=== PATIENT | male | born 1935 | race American Indian/Alaskan Native ===

== ENCOUNTER 2017-05-30 10:25 | Inpatient (IN) | payer MEDICARE, BC ==
[2017-05-30] MEDS ORDERED: Sodium Chloride 0.9% 500 ML IV ONE ×2 (11:16→11:33)
--- NOTE | 2017-05-30 11:18 | C.PDOC ---
History Of Present Illness 81 yr old M BIBA for AMS, pt woke up his grand daughter and was asking strange questions and has slurred speech, ALS noted hypoglycemia 44, treated on the field, re-checked 290. Pt denies chest pain, any weakness, numbness, sob, n/v/d , speaks in full sentences. Time Seen by Provider: 05/30/17 11:01 Chief Complaint (Nursing): Altered Mental Status History Per: Patient, EMS, Family History/Exam Limitations: None Onset/Duration Of Symptoms: Mins, Sudden Onset Onset Of Symptoms: <3 Hours Current Symptoms Are (Timing): Gone Usual Baseline: Alert Oriented Past Medical History Reviewed: Historical Data, Nursing Documentation, Vital Signs Vital Signs: Last Vital Signs Temp 97.8 F 05/30/17 16:19 Pulse 80 05/30/17 16:19 Resp 20 05/30/17 16:19 BP 157/67 H 05/30/17 16:19 Pulse Ox 99 05/30/17 18:14 - Medical History PMH: HTN, Hypercholesterolemia Family History: States: No Known Family Hx - Social History Hx Alcohol Use: No Hx Substance Use: No - Immunization History Hx Tetanus Toxoid Vaccination: No Hx Influenza Vaccination: No Hx Pneumococcal Vaccination: No Review Of Systems Except As Marked, All Systems Reviewed And Found Negative. Constitutional: Negative for: Fever, Chills Eyes: Negative for: Pain ENT: Negative for: Ear Pain Cardiovascular: Negative for: Chest Pain Respiratory: Negative for: Cough Gastrointestinal: Negative for: Nausea, Vomiting, Abdominal Pain Genitourinary: Negative for: Dysuria Musculoskeletal: Negative for: Neck Pain Neurological: Positive for: Change in Speech, Altered Mental Status. Negative for: Weakness, Numbness Physical Exam - Physical Exam Appears: Non-toxic Skin: Normal Color, Warm Head: Atraumatic, Normacephalic Eye(s): bilateral: Normal Inspection Ear(s): Bilateral: Normal Nose: Normal Oral Mucosa: Moist Tongue: Normal Appearing Gingiva: Normal Appearing Throat: Normal Neck: Normal, Normal ROM Chest: Symmetrical Cardiovascular: Rhythm Regular Respiratory: Normal Breath Sounds Gastrointestinal/Abdominal: Normal Exam Back: Normal Inspection Extremity: Normal ROM Neurological/Psych: Oriented x3, Normal Speech, Normal Motor, Normal Sensation ED Course And Treatment - Laboratory Results Result Diagrams: 05/30/17 11:28 05/30/17 11:28 Lab Interpretation: Abnormal (anemia) ECG: Interpreted By Me ECG Rhythm: Sinus Rhythm ECG Interpretation: Abnormal Interpretation Of ECG: sinus rhythm with 1st degree AV block O2 Sat by Pulse Oximetry: 99 Pulse Ox Interpretation: Normal - Radiology CXR: Viewed By Me, Read By Radiologist CXR Interpretation: Yes: Infiltrates - CT Scan/US head CT Other Rad Studies (CT/US): Read By Radiologist, Radiology Report Reviewed CT/US Interpretation: No acute changes, pls see full report - Physician Consult Information Physician Contacted: Mary Le (accepted the pt) Disposition Counseled Patient/Family Regarding: Studies Performed, Diagnosis, Need For Followup - Disposition Disposition: HOSPITALIZED Disposition Time: 13:00 Condition: STABLE - Clinical Impression Clinical Impression: Altered mental state, Pneumonia, Hypoglycemia, Heart block AV first degree Decision To Admit - Pt Status Changed To: Hospital Disposition Of: Inpatient - Admit Certification Admit to Inpatient:: After my assessment, the patient will require hospitalization for at least two midnights. This is because of the severity of symptoms shown, intensity of services needed, and/or the medical risk in this patient being treated as an outpatient. - InPatient: Physician Admission Certification:: AMS, pneumonia, hypoglycemia, 1st degree AV block - . Bed Request Type: Telemetry Admitting Physician: Mary Le Patient Diagnosis: Altered mental state, Pneumonia, Hypoglycemia, Heart block AV first degree
[2017-05-30 11:32] LABS: BASO % 0.3 % (0.0-2.0); EOS % 0.4 % (0.0-4.0); HEMATOCRIT 31.7 % (35.0-51.0); LYMPH # 0.7 K/uL (1.0-4.3); LYMPH % 9.6 % (20.0-40.0); MEAN CELL VOLUME 93.3 fL (80.0-94.0); MEAN CORPUSCULAR HEMOGLOBIN 30.9 pg (27.0-31.0); MEAN CORPUSCULAR HGB CONC 33.1 g/dL (33.0-37.0); MONO # 0.8 K/uL (0.0-0.8); MONO % 11.1 % (0.0-10.0); PLATELET COUNT 202 K/uL (130-400); RED CELL DISTRIBUTION WIDTH 14.5 % (11.5-14.5); WHITE BLOOD COUNT 7.3 K/uL (4.8-10.8)
[2017-05-30 11:37] LABS: URINE BILIRUBIN NEGATIVE (NEGATIVE); URINE COLOR Colorless (YELLOW); URINE GLUCOSE (UA) 2+ mg/dL (Normal); URINE KETONE NEGATIVE (NEGATIVE); URINE LEUKOCYTE ESTERASE NEG Leu/uL (Negative); URINE PROTEIN NEGATIVE (NEGATIVE); URINE UROBILINOGEN NORMAL mg/dL (0.2-1.0); WBC URINE 1 /hpf (0-5)
[2017-05-30 11:38] LABS: URINE BLOOD NEGATIVE (NEGATIVE)
[2017-05-30 11:44] LABS: ALKALINE PHOSPHATASE 54 U/L (38-126); ALT/SGPT 32 U/L (21-72); AST/SGOT 25 U/L (17-59); BILIRUBIN,TOTAL 0.5 mg/dL (0.2-1.3); CARBON DIOXIDE 25 mmol/L (22-30); CHLORIDE 108 mmol/L (98-107); GFR AFRICAN-AMERICAN > 60; GLUCOSE,RANDOM 114 mg/dL (75-110); POTASSIUM 4.2 mmol/L (3.6-5.2); SODIUM 139 mmol/L (132-148); TOTAL PROTEIN 6.2 g/dL (6.3-8.3)
[2017-05-30 11:46] LABS: ALB/GLOB RATIO 1.3 (1.0-2.1); BLOOD UREA NITROGEN 11 mg/dL (9-20)
--- NOTE | 2017-05-30 11:57 | RAD ---
Chest x-ray single frontal view History: Altered mental status. Comparison: None available. Findings: Mild to moderate venous congestion. Superimposed patchy increased consolidative changes seen within the right mid to lower lung zone. Pleural thickening and/or small pleural effusion at the right lung base. Status post median sternotomy. Mild linear atelectasis in the right midlung. Biapical pleural thickening. Tortuous ectatic aorta. Mild cardiomegaly. Degenerative changes in the spine and shoulders. Impression: Mild to moderate venous congestion. Superimposed patchy increased consolidative changes seen within the right mid to lower lung zone. Pleural thickening and/or small pleural effusion at the right lung base. Mild linear atelectasis in the right midlung.
--- NOTE | 2017-05-30 12:13 | CT ---
PROCEDURE: CT HEAD WITHOUT CONTRAST. HISTORY: AMS COMPARISON: None available. TECHNIQUE: Axial computed tomography images were obtained through the head/brain without intravenous contrast. Radiation dose: Total exam DLP = 900.00 mGy-cm. This CT exam was performed using one or more of the following dose reduction techniques: Automated exposure control, adjustment of the mA and/or kV according to patient size, and/or use of iterative reconstruction technique. FINDINGS: HEMORRHAGE: No intracranial hemorrhage. BRAIN: Diffuse expansion of the ventriculosulcal and cisternal spaces is appreciated with white matter lucency compatible with diffuse cerebral atrophy and chronic microangiopathy. Bilateral basal ganglia chronic lacunes or infarcts are identified. VENTRICLES: Unremarkable. No hydrocephalus. CALVARIUM: Unremarkable. PARANASAL SINUSES: Total ethmoid sinusitis changes are incidentally noted. MASTOID AIR CELLS: Unremarkable as visualized. No inflammatory changes. OTHER FINDINGS: None. IMPRESSION: Age related neuro degenerative changes are identified without acute intracranial findings as discussed above. Follow up CT or MRI are available if clinically warranted.
[2017-05-30 12:23] LABS: NEUTROPHIL 82 % (50-75); TOTAL CELLS COUNTED 100
[2017-05-30] MEDS ORDERED: Azithromycin 500mg/250ML NS 500 MG/250 ML BAG IV STA (13:00)
--- NOTE | 2017-05-30 19:55 | CP.PCM.CON ---
History of Present Illness - History of Present Illness History of Present Illness: INFECTIOUS DISEASE CONSULT DICTATED ; DICTATION NO: [id number] Past Patient History - Past Medical History & Family History Past Medical History?: Yes - Past Social History Smoking Status: Never Smoked - CARDIAC Hx Hypercholesterolemia: Yes Hx Hypertension: Yes - PULMONARY Hx Respiratory Disorders: No - NEUROLOGICAL Hx Neurological Disorder: No - HEENT Hx HEENT Problems: No - RENAL Hx Chronic Kidney Disease: No - ENDOCRINE/METABOLIC Hx Endocrine Disorders: Yes Hx Diabetes Mellitus Type 2: Yes - HEMATOLOGICAL/ONCOLOGICAL Hx Blood Disorders: No - MUSCULOSKELETAL/RHEUMATOLOGICAL Hx Musculoskeletal Disorders: No Hx Falls: No - GASTROINTESTINAL Hx Gastrointestinal Disorders: No - GENITOURINARY/GYNECOLOGICAL Hx Genitourinary Disorders: No - PSYCHIATRIC Hx Substance Use: No - SURGICAL HISTORY Hx Surgeries: Yes Hx Angioplasty: Yes Hx Cardiac Catheterization: Yes - ANESTHESIA Hx Anesthesia: Yes Hx Anesthesia Reactions: No Hx Malignant Hyperthermia: No Has any member of the family had a problem w/ anesthesia?: No Meds Allergies/Adverse Reactions: Allergies Allergy/AdvReac Type Severity Reaction Status Date / Time No Known Allergies Allergy Verified 05/30/17 10:52 - Medications Medications: Current Medications Albuterol/Ipratropium (Duoneb 3 Mg/0.5 Mg (3 Ml) Ud) 3 ml INH RQ6 [facility] Amlodipine Besylate (Norvasc) 5 mg PO DAILY [facility] Aspirin (Aspirin Chewable) 81 mg PO DAILY [facility] Last Admin: 05/30/17 18:57 Dose: 81 mg Azithromycin 500 mg/ Sodium (Chloride) 250 mls @ 250 mls/hr IVPB Q24H [facility] Ceftriaxone Sodium 1 gm/ (Dextrose) 100 mls @ 100 mls/hr IVPB Q24H [facility] Losartan Potassium (Cozaar) 25 mg PO DAILY [facility] Magnesium Oxide (Mag-Ox) 400 mg PO BID [facility] Metoprolol Tartrate (Lopressor) 25 mg PO BID [facility] Last Admin: 05/30/17 18:58 Dose: 25 mg Ondansetron HCl (Zofran Inj) 4 mg IVP Q6 PRN PRN Reason: Nausea/Vomiting Last Admin: 05/30/17 16:31 Dose: 4 mg Pantoprazole Sodium (Protonix Ec Tab) 40 mg PO DAILY [facility] Sennosides (Senokot Tab) 8.6 mg PO DAILY [facility] Spironolactone (Aldactone) 25 mg PO DAILY [facility] Results - Vital Signs Recent Vital Signs: Last Vital Signs Temp 97.8 F 05/30/17 16:19 Pulse 80 05/30/17 16:19 Resp 20 05/30/17 16:19 BP 154/67 H 05/30/17 18:58 Pulse Ox 99 05/30/17 18:22 - Labs Result Diagrams: 05/30/17 11:28 05/30/17 11:28 Labs: Laboratory Results - last 24 hr 05/30/17 05/30/17 05/30/17 11:28 11:28 11:28 WBC 7.3 RBC 3.39 L Hgb 10.5 L Hct 31.7 L MCV 93.3 MCH 30.9 MCHC 33.1 RDW 14.5 Plt Count 202 MPV 8.0 Neut % (Auto) 78.6 H Lymph % (Auto) 9.6 L [place] % (Auto) 11.1 H Eos % (Auto) 0.4 Baso % (Auto) 0.3 Neut # 5.7 Lymph # 0.7 L [place] # 0.8 Eos # 0.0 Baso # 0.0 Neutrophils % (Manual) 82 H Lymphocytes % (Manual) 14 L Monocytes % (Manual) 4 Platelet Estimate Normal RBC Morphology Normal Sodium 139 Potassium 4.2 Chloride 108 H Carbon Dioxide 25 Anion Gap 10 BUN 11 Creatinine 1.1 Est GFR ( Amer) > 60 Est GFR (Non-Af Amer) > 60 POC Glucose (mg/dL) Random Glucose 114 H Calcium 8.0 L Total Bilirubin 0.5 AST 25 ALT 32 Alkaline Phosphatase 54 Troponin I < 0.0120 NT-Pro-B Natriuret Pep 444 Total Protein 6.2 L Albumin 3.5 Globulin 2.7 Albumin/Globulin Ratio 1.3 Lipase 122 Urine Color Colorless Urine Clarity Clear Urine pH 7.0 Ur Specific [place] 1.003 Urine Protein Negative Urine Glucose (UA) 2+ H Urine Ketones Negative Urine Blood Negative Urine Nitrate Negative Urine Bilirubin Negative Urine Urobilinogen Normal Ur Leukocyte Esterase Neg Urine WBC (Auto) 1 Ur Squamous Epith Cells < 1 Urine Opiates Screen Urine Methadone Screen Ur Barbiturates Screen Ur Phencyclidine Scrn Ur Amphetamines Screen U Benzodiazepines Scrn U Oth Cocaine Metabols U Cannabinoids Screen 05/30/17 05/30/17 05/30/17 11:28 16:51 16:53 WBC RBC Hgb Hct MCV MCH MCHC RDW Plt Count MPV Neut % (Auto) Lymph % (Auto) [place] % (Auto) Eos % (Auto) Baso % (Auto) Neut # Lymph # [place] # Eos # Baso # Neutrophils % (Manual) Lymphocytes % (Manual) Monocytes % (Manual) Platelet Estimate RBC Morphology Sodium Potassium Chloride Carbon Dioxide Anion Gap BUN Creatinine Est GFR ( Amer) Est GFR (Non-Af Amer) POC Glucose (mg/dL) 31 L* 32 L* Random Glucose Calcium Total Bilirubin AST ALT Alkaline Phosphatase Troponin I NT-Pro-B Natriuret Pep Total Protein Albumin Globulin Albumin/Globulin Ratio Lipase Urine Color Urine Clarity Urine pH Ur Specific [place] Urine Protein Urine Glucose (UA) Urine Ketones Urine Blood Urine Nitrate Urine Bilirubin Urine Urobilinogen Ur Leukocyte Esterase Urine WBC (Auto) Ur Squamous Epith Cells Urine Opiates Screen Negative Urine Methadone Screen Negative Ur Barbiturates Screen Negative Ur Phencyclidine Scrn Negative Ur Amphetamines Screen Negative U Benzodiazepines Scrn Negative U Oth Cocaine Metabols Negative U Cannabinoids Screen Negative 05/30/17 05/30/17 05/30/17 17:20 18:27 18:29 WBC RBC Hgb Hct MCV MCH MCHC RDW Plt Count MPV Neut % (Auto) Lymph % (Auto) [place] % (Auto) Eos % (Auto) Baso % (Auto) Neut # Lymph # [place] # Eos # Baso # Neutrophils % (Manual) Lymphocytes % (Manual) Monocytes % (Manual) Platelet Estimate RBC Morphology Sodium Potassium Chloride Carbon Dioxide Anion Gap BUN Creatinine Est GFR ( Amer) Est GFR (Non-Af Amer) POC Glucose (mg/dL) 67 47 L 75 Random Glucose Calcium Total Bilirubin AST ALT Alkaline Phosphatase Troponin I NT-Pro-B Natriuret Pep Total Protein Albumin Globulin Albumin/Globulin Ratio Lipase Urine Color Urine Clarity Urine pH Ur Specific [place] Urine Protein Urine Glucose (UA) Urine Ketones Urine Blood Urine Nitrate Urine Bilirubin Urine Urobilinogen Ur Leukocyte Esterase Urine WBC (Auto) Ur Squamous Epith Cells Urine Opiates Screen Urine Methadone Screen Ur Barbiturates Screen Ur Phencyclidine Scrn Ur Amphetamines Screen U Benzodiazepines Scrn U Oth Cocaine Metabols U Cannabinoids Screen
[2017-05-30] MEDS: Albuterol-Ipratrop 3 mg / 0.5 (3 ml) UD INH SCH (20:01)
[2017-05-30] MEDS: Dextrose 5%/0.9% NS 1,000 ML IV SCH (20:40)
[2017-05-30] MEDS: cefTRIAXone IV 1 gm in Dextros 50 ML IVPB SCH (20:46)
[2017-05-30] MEDS ORDERED: Dextrose 50% SYRINGE Inj (50 ml) ONE (21:34)
--- NOTE | 2017-05-30 21:44 | CON ---
DATE: 05/30/2017 INFECTIOUS DISEASE CONSULTATION REQUESTED BY: Dr. Le. DICTATION DONE BY: Lesvia Hull MD. REASON FOR CONSULTATION: Altered mental status, pneumonia, hypoglycemia. HISTORY OF PRESENT ILLNESS: The patient, 81-year-old male, with history of hypertension, hypercholesterolemia, who was admitted by the emergency room because of altered mental status and slurred speech. As reported by his granddaughter, the patient was asking strange questions and had a slurred speech. The patient was found to be hypoglycemic by the ALS with a blood sugar of 44 and treated on the field and recheck was 290 as reported. Presently, the patient is awake and responsive. Complains of a dry cough with scanty expectoration, but denies any shortness of breath, chest pains. The patient also denies any weakness, numbness or headaches. Denies any nausea, vomiting or diarrhea. The patient is speaking in full sentences and remembers his medications also. Chest x-ray on admission was remarkable for consolidative changes in the right middle lobe and right lower lobe zones. 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 Infectious Disease consultation requested by Dr. Le for pneumonia and altered mental status. PAST MEDICAL HISTORY: As above, history of hypertension, history of hypercholesterolemia, history of diabetes mellitus. The patient states he is on metformin and glipizide at home. FAMILY HISTORY: Noncontributory. SOCIAL HISTORY: Denies alcohol use or any substance abuse. Denies smoking at present. IMMUNIZATION: The patient is not up to date with his immunization with influenza vaccination or pneumococcal vaccination. Denies any tetanus vaccination recently, but he is unsure. REVIEW OF SYSTEMS: As above. GENERAL: Presently, the patient is awake and responsive. Denies any fever or chills. ENT: Denies any ear pain. Eyes: No pain or conjunctivitis. CARDIOVASCULAR: Denies any chest pain, shortness of breath. RESPIRATORY: Complains of some cough, but denies any expectorant. GI: Denies nausea, vomiting or diarrhea or abdominal pain. : Unremarkable. No dysuria. No hematuria. MUSCULOSKELETAL: Denies any pains or aches or myalgias or arthralgias. JIVE DEVELOPER: Initial change of speech, but presently talking in full sentences. PHYSICAL EXAMINATION: GENERAL: The patient is an 81-year-old well-built, well-nourished male. 5 feet 5 inches. 165 pounds. VITAL SIGNS: Temperature 97.8, blood pressure 157/67, respirations 20, pulse of 80, pulse ox is 99% on room air. HEENT: Pupils equal, reactive to light and accommodation. Extraocular movements full. Fundus negative. Sclerae nonicteric. Conjunctivae normal. JVP not elevated. NECK: Appears to be supple. LUNGS: A few basilar rales at the right base. CARDIOVASCULAR SYSTEM: S1, S2. No murmur or gallop. ABDOMEN: Soft, nontender. No masses. EXTREMITIES: 1+ edema. JIVE DEVELOPER: Presently, no gross deficits. Moves all extremities. Oriented x3. Speech is normal. Normal motor and normal sensation at present. LABORATORY DATA: WBC 7.3, H and H of 10.5 and 31.7, platelets 202. Urinalysis is unremarkable. Liver function tests AST 25, ALT normal 30. BUN 11, creatinine 1.1. Chest x-ray as reported increased consolidative changes with right middle lobe and right lower lobe zones noted. Some mild to moderate venous congestion also seen. 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 IMPRESSION: 1. Right-sided pneumonia, most likely community acquired pneumonia. Rule out atypical pneumonia. 2. Altered mental status, most likely secondary to hypoglycemia. Initial CT scan is negative. 3. History of hypertension. 4. History of first-degree atrioventricular block as noted by the emergency room physician. Suggest pancultures. Get sedimentation rate, C-reactive proteins. 5. Check atypical titers. 6. We will continue intravenous Rocephin 1 g, make it q. 12 hourly, increase the dose and continue Zithromax 500 daily. Follow up renal functions and neuro status to be monitored closely. We will follow up and make any adjustments if needed. Also, please get sputum Gram stain and culture if possible and a methicillin-resistant Staphylococcus aureus screen. Thank you very much for allowing me to participate in the care of your patient. We will follow along with you. Lesvia Hull MD [facility] # [id number]
[2017-05-30] MEDS: (Novolin R) Insulin Human Regular 100 units/ml vial SC SCH (22:33)
[2017-05-31] MEDS: Albuterol-Ipratrop 3 mg / 0.5 (3 ml) UD INH SCH ×4 (01:46→19:32)
[2017-05-31] MEDS ORDERED: Dextrose 50% SYRINGE Inj (50 ml) IVP PRN (02:28)
[2017-05-31] MEDS ORDERED: Glucagon Recombinant 1 mg Inj IM PRN (02:28)
[2017-05-31] MEDS ORDERED: Dextrose 50% VIAL Inj (50 ml) IV ONE (02:30)
--- NOTE | 2017-05-31 05:48 | HP ---
CHIEF COMPLAINT: Altered mental status. HISTORY OF PRESENT ILLNESS: Mr. Henrry Garcia is an 81-year-old male, came with altered mental status. Patient woke up his granddaughter and was asking strange questions and had slurred speech, altered mental status, noted hypoglycemia, glucose was 44 as per EMS, treated on the field, recheck was 290. Patient denied chest pain, any weakness, numbness, or shortness of breath. No nausea, vomiting, or diarrhea. Speaking full sentences. saw the patient in his room, his same granddaughter, Eitan, and two daughters who are on the bedside. One of his daughters is working in [employer] [facility]. I asked patient different questions. It looks like he is mentally oriented x3. No chest pain. No nausea, vomiting, or diarrhea. PAST MEDICAL HISTORY: Hypercholesterolemia. FAMILY HISTORY: Father and mother, noncontributory. HABITS: No smoking. No drugs. No ethanol. ALLERGIES: PATIENT IS NOT ALLERGIC WITH ANY MEDICATIONS. REVIEW OF SYSTEMS: Patient is seen and examined on the bedside. Looking comfortable, oriented x3, does not like in distress. Family was around. No fever. No chills. No nausea, vomiting, or diarrhea. No hematemesis. No hematochezia. No swelling of the leg. No chest pain. No palpitation. No headache or dizziness. PHYSICAL EXAMINATION: VITAL SIGNS: Temperature 97.8, pulse 70, blood pressure 154/67, respiratory rate is 20. HEENT: Head normocephalic and atraumatic. Eyes PERRLA. Extraocular muscles are intact. Conjunctivae clear. Nose patent. Mucous membranes moist. NECK: Supple. No carotid bruits. No JVD. No thyromegaly. CHEST: Bilaterally symmetrical. HEART: S1 and S2 positive. LUNGS: Clear to auscultation. ABDOMEN: Soft. Bowel sounds present. No organomegaly. EXTREMITIES: No edema. No cyanosis. NEUROLOGIC: Patient is awake and alert. Moving all 4 extremities. No focal deficit. LABORATORY DATA: White blood cells 7.3, hemoglobin 10.5, hematocrit 31.7, platelets 202. Sodium 139, potassium 4.2, chloride 108, BUN 11, creatinine 1.1, glucose 31, 32, 67, 47, 75, calcium 8.0. ASSESSMENT AND PLAN: Mr. Henrry Garcia is an 81-year-old male with anemia, hyperchloremia, history of diabetes mellitus - taking Glucotrol, has hypoglycemic attacks, started patient on DNS, feeling nauseous and vomiting, made n.p.o. and started on Zofran. Hypocalcemia, glucosuria, drug screening negative. Chest x-ray done showed [id number]-[id number] venous congestion, superimposed patchy increased consolidative changes seen within the right middle to lower lung zone, pleural thickening and/or mild pleural effusion at the right lung base, mild linear atelectasis in the right middle lung. Infectious Disease consult called with Dr. Lesvia Hull. CAT scan of the head done - reviewed by me. Patient has a history of hypertension, history of hypercholesterolemia, history of diabetes mellitus, was on metformin and glipizide, which we will put on hold. In fact, patient has community acquired right-sided pneumonia, rule out atypical pneumonia, altered mental status, most likely due to hypoglycemia, history of first-degree atrioventricular block as noted by emergency room physician, suggested Cardiology consult. Cardiology consult called. We will check atypical titer. Continue intravenous Rocephin, azithromycin. We will follow up renal function also. Gastrointestinal and deep venous thrombosis prophylaxes. Repeat labs. We will follow. Mary Le MD MTDD
[2017-05-31] MEDS: (Novolin R) Insulin Human Regular 100 units/ml vial SC SCH ×4 (08:33→21:37)
[2017-05-31] MEDS: Dextrose 5%/0.9% NS 1,000 ML IV SCH ×2 (09:00→21:36)
[2017-05-31] MEDS: Magnesium Oxide 400 mg Tab UD PO SCH ×2 (09:34→18:34)
[2017-05-31] MEDS: Pantoprazole 40 mg EC Tab PO SCH (09:35)
[2017-05-31] MEDS: cefTRIAXone IV 1 gm in Dextros 50 ML IVPB SCH ×2 (09:39→21:35)
[2017-05-31] MEDS: Enoxaparin 30 mg Syringe SC SCH ×2 (11:42→21:36)
--- NOTE | 2017-05-31 13:11 | CP.PCM.CON ---
History of Present Illness - History of Present Illness History of Present Illness: 81 year old dotty with Hx of DM, HTN, Mixed hyperlipidemia, complicated with CAD post CABG 2005 at [place], no recent f/u with cardiology. was admitted though the ED with dehydration, sepsis, wbc 7 infiltrate on CXR and 1st degree AV block on EKG was hydrated did well improved, on antibiotics with help of ID, f/u with Echo. Review of Systems - Review of Systems Systems not reviewed;Unavailable: Altered Mental Status - Constitutional Constitutional: Anorexia - EENT Eyes: absent: Discharge Ears: absent: Ear Discharge, Dizziness Nose/Mouth/Throat: absent: Epistaxis - Cardiovascular Cardiovascular: Dyspnea. absent: Acrocyanosis, Chest Pain, Diaphoresis, Palpitations, Syncope - Respiratory Respiratory: Cough, Dyspnea. absent: Hemoptysis - Gastrointestinal Gastrointestinal: absent: Abdominal Pain, Diarrhea, Nausea, Vomiting - Genitourinary Genitourinary: absent: Change in Urinary Stream Past Patient History - Past Medical History & Family History Past Medical History?: Yes - Past Social History Smoking Status: Never Smoked - CARDIAC Hx Hypercholesterolemia: Yes Hx Hypertension: Yes - PULMONARY Hx Respiratory Disorders: No - NEUROLOGICAL Hx Neurological Disorder: No - HEENT Hx HEENT Problems: No - RENAL Hx Chronic Kidney Disease: No - ENDOCRINE/METABOLIC Hx Endocrine Disorders: Yes Hx Diabetes Mellitus Type 2: Yes - HEMATOLOGICAL/ONCOLOGICAL Hx Blood Disorders: No - MUSCULOSKELETAL/RHEUMATOLOGICAL Hx Musculoskeletal Disorders: No Hx Falls: No - GASTROINTESTINAL Hx Gastrointestinal Disorders: No - GENITOURINARY/GYNECOLOGICAL Hx Genitourinary Disorders: No - PSYCHIATRIC Hx Substance Use: No - SURGICAL HISTORY Hx Surgeries: Yes Hx Angioplasty: Yes Hx Cardiac Catheterization: Yes Hx Coronary Artery Bypass Graft: Yes (2005) - ANESTHESIA Hx Anesthesia: Yes Hx Anesthesia Reactions: No Hx Malignant Hyperthermia: No Has any member of the family had a problem w/ anesthesia?: No Meds Allergies/Adverse Reactions: Allergies Allergy/AdvReac Type Severity Reaction Status Date / Time No Known Allergies Allergy Verified 05/30/17 10:52 - Medications Medications: Current Medications Albuterol/Ipratropium (Duoneb 3 Mg/0.5 Mg (3 Ml) Ud) 3 ml INH RQ6 [facility] Last Admin: 05/31/17 07:26 Dose: Not Given Amlodipine Besylate (Norvasc) 5 mg PO DAILY [facility] Last Admin: 05/31/17 09:35 Dose: 5 mg Aspirin (Aspirin Chewable) 81 mg PO DAILY [facility] Last Admin: 05/31/17 10:02 Dose: 81 mg Dextrose (Dextrose 50% Inj) 0 ml IVP .STAT PRN; Protocol PRN Reason: Hypoglycemia Protocol Dextrose (Glutose 15) 0 gm PO .ONCE PRN; Protocol PRN Reason: Hypoglycemia Protocol Enoxaparin Sodium (Lovenox) 30 mg SC Q12 [facility] Last Admin: 05/31/17 11:42 Dose: 30 mg Glucagon (Glucagen Diagnostic Kit) 0 mg IM .STAT PRN; Protocol PRN Reason: Hypoglycemia Protocol Azithromycin 500 mg/ Sodium (Chloride) 250 mls @ 250 mls/hr IVPB Q24H [facility] Dextrose/Sodium Chloride (Dextrose 5%/0.9% Ns 1000 Ml) 1,000 mls @ 80 mls/hr IV .[id number] [facility] Last Admin: 05/30/17 20:40 Dose: 80 mls/hr Ceftriaxone Sodium (Rocephin Iv 1 Gm Duplex) 50 mls @ 100 mls/hr IVPB Q12H [facility] Last Admin: 05/31/17 09:39 Dose: 100 mls/hr Dextrose (Dextrose 5% In Water 1000 Ml) 1,000 mls @ 0 mls/hr IV .Q0M PRN; Protocol; Per Protocol PRN Reason: Hypoglycemia Protocol Insulin Human Regular (Novolin R) 0 unit SC ACHS [facility] PRN Reason: Protocol Last Admin: 05/31/17 12:00 Dose: Not Given Losartan Potassium (Cozaar) 25 mg PO DAILY [facility] Last Admin: 05/31/17 09:35 Dose: 25 mg Magnesium Oxide (Mag-Ox) 400 mg PO BID [facility] Last Admin: 05/31/17 09:34 Dose: 400 mg Metoprolol Tartrate (Lopressor) 25 mg PO BID [facility] Last Admin: 05/31/17 09:35 Dose: 25 mg Ondansetron HCl (Zofran Inj) 8 mg IVP Q6 PRN PRN Reason: Nausea/Vomiting Pantoprazole Sodium (Protonix Ec Tab) 40 mg PO DAILY [facility] Last Admin: 05/31/17 09:35 Dose: 40 mg Sennosides (Senokot Tab) 8.6 mg PO DAILY [facility] Last Admin: 05/31/17 09:34 Dose: 8.6 mg Spironolactone (Aldactone) 25 mg PO DAILY [facility] Last Admin: 05/31/17 09:35 Dose: 25 mg Physical Exam - Constitutional Appears: Non-toxic - Head Exam Head Exam: ATRAUMATIC - Eye Exam Eye Exam: EOMI - ENT Exam ENT Exam: Mucous Membranes Moist - Neck Exam Neck exam: Negative for: Lymphadenopathy, Thyromegaly - Respiratory Exam Respiratory Exam: Clear to Auscultation Bilateral. absent: Rales, Rhonchi, Wheezes - Cardiovascular Exam Cardiovascular Exam: REGULAR RHYTHM, Systolic Murmur - GI/Abdominal Exam GI & Abdominal Exam: Normal Bowel Sounds. absent: Organomegaly - Rectal Exam Rectal Exam: Deferred - Extremities Exam Extremities exam: Positive for: normal capillary refill. Negative for: calf tenderness - Neurological Exam Neurological exam: Alert, Oriented x3 - Psychiatric Exam Psychiatric exam: Normal Mood - Skin Skin Exam: Dry Results - Vital Signs Recent Vital Signs: Last Vital Signs Temp 98.7 F 05/31/17 04:53 Pulse 61 05/31/17 10:36 Resp 20 05/31/17 04:53 BP 139/63 05/31/17 09:35 Pulse Ox 98 05/31/17 04:53 - Labs Result Diagrams: 05/30/17 11:28 05/30/17 11:28 Labs: Laboratory Results - last 24 hr 05/30/17 05/30/17 05/30/17 08:07 16:51 16:53 ESR POC Glucose (mg/dL) 31 L* 32 L* C-React Prot High Sens Ur L.pneumophila Ag Negative 05/30/17 05/30/17 05/30/17 17:20 18:27 18:29 ESR POC Glucose (mg/dL) 67 47 L 75 C-React Prot High Sens Ur L.pneumophila Ag 05/30/17 05/30/17 05/31/17 21:23 22:20 02:21 ESR POC Glucose (mg/dL) 49 L 99 41 L C-React Prot High Sens Ur L.pneumophila Ag 05/31/17 05/31/17 05/31/17 02:22 02:56 06:15 ESR POC Glucose (mg/dL) 40 L 146 H 99 C-React Prot High Sens Ur L.pneumophila Ag 05/31/17 05/31/17 05/31/17 07:57 07:57 11:13 ESR 18 H POC Glucose (mg/dL) 143 H C-React Prot High Sens 2.74 Ur L.pneumophila Ag Assessment & Plan (1) 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
[2017-06-01] MEDS: Albuterol-Ipratrop 3 mg / 0.5 (3 ml) UD INH SCH ×4 (01:43→19:55)
[2017-06-01] MEDS: (Novolin R) Insulin Human Regular 100 units/ml vial SC SCH ×4 (08:27→21:23)
[2017-06-01] MEDS: Magnesium Oxide 400 mg Tab UD PO SCH ×2 (09:19→17:09)
[2017-06-01] MEDS: Pantoprazole 40 mg EC Tab PO SCH (09:21)
[2017-06-01] MEDS: Enoxaparin 30 mg Syringe SC SCH ×2 (09:24→21:20)
[2017-06-01] MEDS: cefTRIAXone IV 1 gm in Dextros 50 ML IVPB SCH (10:00)
--- NOTE | 2017-06-01 10:35 | PN ---
DATE: Patient is an 81 years old male. SUBJECTIVE: Patient is seen and examined at the bedside, looking comfortable. No nausea, vomiting, or diarrhea. No hematuria, or hematochezia. No swelling of the legs. No chest pain. No palpitation. No headache. No dizziness. Cough is getting better. PHYSICAL EXAMINATION: VITAL SIGNS: The temperature 98.4, pulse 60, blood pressure 116/70, respiratory rate is 20. HEENT: Head: Normocephalic and atraumatic. Eyes: Conjunctivae clear. Nose: Patent. Mucous membranes moist. NECK: Supple. No carotid bruit, JVD, or thyromegaly. CHEST: Bilaterally symmetrical. HEART: S1, S2 positive. LUNGS: Clear to auscultation. ABDOMEN: Soft. Bowel sounds present. No organomegaly. EXTREMITIES: No edema. No cyanosis. NEUROLOGIC: Patient is awake and alert. Moving all four extremities. No focal deficit. MEDICATIONS: Aldactone, aspirin, Cozaar, dextrose, DuoNeb, glucagon, Lopressor, Lovenox, magnesium oxide, Norvasc, Novolin, Protonix, Rocephin, Senokot, Zofran. LABORATORY DATA: White blood cells 7.3, hemoglobin 10.5, hematocrit 31.7, platelets 202,000. Glucose 183 and 128. ASSESSMENT AND PLAN: Mr. Jose Sales is an 81-year-old male with anemia, uncontrolled diabetes mellitus, glucosuria. Urine Legionella antigen is negative. Seen by the graphic engineer, Dr. Cristi Monteiro. History of diabetes mellitus; hypertension; history of hypercholesterolemia; coronary artery disease, status post coronary artery bypass graft in 2005 at [facility]; dehydrated, sepsis; first-degree AV block on EKG. Antibiotics started. Infectious Disease is on the case. IV fluid given. Came in with altered mental status, improved. Pneumonia, getting better. Continue antibiotics as per Dr. Lesvia Hull. Gastrointestinal and deep venous thrombosis prophylaxis. CAT scan of the head done, reviewed by me . Mary Le MD KARELY
--- NOTE | 2017-06-01 13:41 | CP.PCM.PN ---
Subjective - Date & Time of Evaluation Date of Evaluation: 06/01/17 Time of Evaluation: 13:40 - Subjective Subjective: afebrile, Denies shortness of breath or chest pain. Denies any expectoration Denies hemoptysis. SEEN BY CARDIOLOGY. 2D ECHO FINDINGS NOTED. lABS REVIEWED. Objective - Vital Signs/Intake and Output Vital Signs (last 24 hours): Temp Pulse Resp BP Pulse Ox 98.4 F 59 L 20 156/69 H 97 06/01/17 07:20 06/01/17 07:20 06/01/17 07:20 06/01/17 09:20 06/01/17 07:20 - Medications Medications: Current Medications Albuterol/Ipratropium (Duoneb 3 Mg/0.5 Mg (3 Ml) Ud) 3 ml INH RQ6 [facility] Last Admin: 06/01/17 13:37 Dose: Not Given Amlodipine Besylate (Norvasc) 5 mg PO DAILY [facility] Last Admin: 06/01/17 09:23 Dose: 5 mg Aspirin (Aspirin Chewable) 81 mg PO DAILY [facility] Last Admin: 06/01/17 09:19 Dose: 81 mg Dextrose (Dextrose 50% Inj) 0 ml IVP .STAT PRN; Protocol PRN Reason: Hypoglycemia Protocol Dextrose (Glutose 15) 0 gm PO .ONCE PRN; Protocol PRN Reason: Hypoglycemia Protocol Enoxaparin Sodium (Lovenox) 30 mg SC Q12 [facility] Last Admin: 06/01/17 09:24 Dose: 30 mg Glucagon (Glucagen Diagnostic Kit) 0 mg IM .STAT PRN; Protocol PRN Reason: Hypoglycemia Protocol Ceftriaxone Sodium (Rocephin Iv 1 Gm Duplex) 50 mls @ 100 mls/hr IVPB Q12H [facility] Last Admin: 06/01/17 10:00 Dose: 100 mls/hr Dextrose (Dextrose 5% In Water 1000 Ml) 1,000 mls @ 0 mls/hr IV .Q0M PRN; Protocol; Per Protocol PRN Reason: Hypoglycemia Protocol Azithromycin 500 mg/ Dextrose 250 mls @ 250 mls/hr IVPB Q24H [facility] Last Admin: 06/01/17 12:14 Dose: 250 mls/hr Insulin Human Regular (Novolin R) 0 unit SC ACHS [facility] PRN Reason: Protocol Last Admin: 06/01/17 12:13 Dose: 3 unit Losartan Potassium (Cozaar) 25 mg PO DAILY [facility] Last Admin: 06/01/17 09:23 Dose: 25 mg Magnesium Oxide (Mag-Ox) 400 mg PO BID [facility] Last Admin: 06/01/17 09:19 Dose: 400 mg Metoprolol Tartrate (Lopressor) 25 mg PO BID [facility] Last Admin: 06/01/17 09:20 Dose: 25 mg Ondansetron HCl (Zofran Inj) 8 mg IVP Q6 PRN PRN Reason: Nausea/Vomiting Pantoprazole Sodium (Protonix Ec Tab) 40 mg PO DAILY [facility] Last Admin: 06/01/17 09:21 Dose: 40 mg Sennosides (Senokot Tab) 8.6 mg PO DAILY [facility] Last Admin: 06/01/17 09:21 Dose: 8.6 mg Spironolactone (Aldactone) 25 mg PO DAILY [facility] Last Admin: 06/01/17 09:22 Dose: 25 mg - Labs Labs: 05/30/17 11:28 05/30/17 11:28 - Constitutional Appears: No Acute Distress - Head Exam Head Exam: NORMAL INSPECTION - Eye Exam Eye Exam: EOMI, PERRL - ENT Exam ENT Exam: Normal Oropharynx - Neck Exam Neck Exam: Normal Inspection - Respiratory Exam Respiratory Exam: Rhonchi (RIGHT SIDE MORE THAN LEFT.), NORMAL BREATHING PATTERN - Cardiovascular Exam Cardiovascular Exam: REGULAR RHYTHM, JVD (FLAT.), +S1, +S2 - GI/Abdominal Exam GI & Abdominal Exam: Soft, Normal Bowel Sounds - Extremities Exam Extremities Exam: Normal Capillary Refill, Pedal Edema (1+.). absent: Calf Tenderness - Neurological Exam Neurological Exam: Awake, CN II-XII Intact, Normal Gait, Oriented x3, Reflexes Normal - Psychiatric Exam Psychiatric exam: Normal Mood - Skin Skin Exam: Normal Color, Warm Assessment and Plan (1) Pneumonia Assessment & Plan: esr 18 crp high. mycoplasma IgM negative Legionella urinary antigen-ve Continue IV Rocephin 1 g every 12 hourly..05/30/17 Continue IV Zithromax 500 mg once a day daily 05/30/17. follow-up chest x-ray Status: Acute (2) Altered mental state Assessment & Plan: patient was found to be hypoglycemic initially on the field with blood sugar of 32. Patient mental status improved after correction of sugars. Status: Acute (3) Heart block AV first degree Assessment & Plan: Cardiology on case. Patient denies any palpitations, any syncopal episode. CT of the head initially was unremarkable. Status: Acute (4) Hypoglycemia Status: Acute
--- NOTE | 2017-06-01 21:54 | PN ---
The patient is an 81-year-old male. SUBJECTIVE: The patient is seen and examined on the bedside, looking comfortable. No nausea, vomiting, diarrhea. No hematuria. No hematochezia. No headache. No dizziness. No chest pain. No palpitation. No fever. No chills. Seen by Dr. Lesvia Hull, ID and Dr. Monteiro, film loader. PHYSICAL EXAMINATION: VITAL SIGNS: Temperature 98.5, pulse 61, blood pressure 113/73, respiratory rate 18. HEENT: Head normocephalic, atraumatic. Eyes PERRLA. Extraocular muscles are intact. Conjunctivae are clear. Nose patent. Mucous membrane moist. NECK: Supple. No carotid bruit. No JVD or thyromegaly. CHEST: Bilaterally symmetrical. HEART: S1 and S2 positive. LUNGS: Clear to auscultation. ABDOMEN: Soft. Bowel sounds positive. No organomegaly. EXTREMITIES: No edema. No cyanosis. NEUROLOGICAL: The patient is awake and alert. Moving all 4 extremities. No focal deficits. LABORATORY DATA: White blood cells 7.3, hemoglobin 10.5, hematocrit 31.7, platelets 202. Glucose 124. MEDICATIONS: Aldactone, aspirin, dextrose, ceftriaxone, Cozaar, DuoNeb, Glucagon, Lovenox, magnesium oxide, Lopressor, amlodipine, pantoprazole. ASSESSMENT AND PLAN: Mr. Henrry Garcia, an 81-year-old male, came with altered mental status, history of diabetes mellitus, hypertension, admits to hyperlipidemia, complicated coronary artery disease, post coronary artery bypass graft in 2005 at [place]. After that, no followup with the Cardiology. Dehydration improving. Sepsis. Pneumonia. First-degree atrioventricular block on EKG. Got hydration, improving. Getting antibiotics as per Infectious Disease. We will follow up with echocardiography as per Dr. Monteiro. History of coronary artery bypass graft. Altered mental status improved. Repeat labs. We will follow. Mary Le MD
--- NOTE | 2017-06-01 21:54 | CARD ---
APPROVED REPORT EXAM: Two-dimensional and M-mode echocardiogram with Doppler and color Doppler. Other Information Quality : GoodRhythm : INDICATION Abnormal EKG/Arrhythmia 2D DIMENSIONS IVSd1.1 (0.7-1.1cm)LVDd4.4 (3.9-5.9cm) PWd1.1 (0.7-1.1cm)LVDs2.8 (2.5-4.0cm) FS (%) 36.8 %LVEF (%)66.9 (>50%) M-Mode DIMENSIONS Left Atrium (MM)3.74 (2.5-4.0cm)Aortic Root3.76 (2.2-3.7cm) Aortic Cusp Exc.2.19 (1.5-2.0cm) Mitral Valve MV E Exyuzhrm52.5cm/sMV A Bhcjjdyr775.5cm/sE/A ratio0.9 TDI E/Lateral E'0.0E/Medial E'0.0 LEFT VENTRICLE The left ventricle is normal size. There is normal left ventricular wall thickness. The left ventricular function is normal. The left ventricular ejection fraction is within the normal range. There is normal LV segmental wall motion. Transmitral Doppler flow pattern is abnormal. RIGHT VENTRICLE The right ventricle is normal size. ATRIA The left atrium size is normal. The right atrium size is normal. AORTIC VALVE The aortic valve is calcified but opens well. MITRAL VALVE The mitral valve is thickened but opens well. TRICUSPID VALVE There is trace tricuspid regurgitation. <Conclusion> Normal LV systolic function. Diastolic dysfunction. Normal chamber size.
--- NOTE | 2017-06-01 22:31 | CP.PCM.PN ---
Subjective - Date & Time of Evaluation Date of Evaluation: 06/01/17 Time of Evaluation: 18:00 - Subjective Subjective: more alert, f/u with echo, normal left ventricular contractility, diastolic dysfunction. Stable post CABG Objective - Vital Signs/Intake and Output Vital Signs (last 24 hours): Temp Pulse Resp BP Pulse Ox 98.5 F 55 L 18 175/75 H 100 06/01/17 16:00 06/01/17 16:00 06/01/17 16:00 06/01/17 17:09 06/01/17 16:00 - Medications Medications: Current Medications Albuterol/Ipratropium (Duoneb 3 Mg/0.5 Mg (3 Ml) Ud) 3 ml INH RQ6 [facility] Last Admin: 06/01/17 13:37 Dose: Not Given Amlodipine Besylate (Norvasc) 5 mg PO DAILY [facility] Last Admin: 06/01/17 09:23 Dose: 5 mg Aspirin (Aspirin Chewable) 81 mg PO DAILY [facility] Last Admin: 06/01/17 09:19 Dose: 81 mg Dextrose (Dextrose 50% Inj) 0 ml IVP .STAT PRN; Protocol PRN Reason: Hypoglycemia Protocol Dextrose (Glutose 15) 0 gm PO .ONCE PRN; Protocol PRN Reason: Hypoglycemia Protocol Enoxaparin Sodium (Lovenox) 30 mg SC Q12 [facility] Last Admin: 06/01/17 09:24 Dose: 30 mg Glucagon (Glucagen Diagnostic Kit) 0 mg IM .STAT PRN; Protocol PRN Reason: Hypoglycemia Protocol Dextrose (Dextrose 5% In Water 1000 Ml) 1,000 mls @ 0 mls/hr IV .Q0M PRN; Protocol; Per Protocol PRN Reason: Hypoglycemia Protocol Azithromycin 500 mg/ Dextrose 250 mls @ 250 mls/hr IVPB Q24H [facility] Last Admin: 06/01/17 12:14 Dose: 250 mls/hr Ceftriaxone Sodium 1 gm/ (Dextrose) 100 mls @ 100 mls/hr IVPB Q12H [facility] Insulin Human Regular (Novolin R) 0 unit SC ACHS [facility] PRN Reason: Protocol Last Admin: 06/01/17 17:11 Dose: Not Given Losartan Potassium (Cozaar) 25 mg PO DAILY [facility] Last Admin: 06/01/17 09:23 Dose: 25 mg Magnesium Oxide (Mag-Ox) 400 mg PO BID [facility] Last Admin: 06/01/17 17:09 Dose: 400 mg Metoprolol Tartrate (Lopressor) 25 mg PO BID [facility] Last Admin: 06/01/17 17:09 Dose: 25 mg Ondansetron HCl (Zofran Inj) 8 mg IVP Q6 PRN PRN Reason: Nausea/Vomiting Pantoprazole Sodium (Protonix Ec Tab) 40 mg PO DAILY [facility] Last Admin: 06/01/17 09:21 Dose: 40 mg Sennosides (Senokot Tab) 8.6 mg PO DAILY [facility] Last Admin: 06/01/17 09:21 Dose: 8.6 mg Spironolactone (Aldactone) 25 mg PO DAILY [facility] Last Admin: 06/01/17 09:22 Dose: 25 mg - Labs Labs: 05/30/17 11:28 05/30/17 11:28 - Constitutional Appears: Non-toxic - Head Exam Head Exam: ATRAUMATIC - Eye Exam Eye Exam: EOMI - Neck Exam Neck Exam: absent: Lymphadenopathy, Thyromegaly - Respiratory Exam Respiratory Exam: Clear to Ausculation Bilateral. absent: Rales - Cardiovascular Exam Cardiovascular Exam: REGULAR RHYTHM, Murmur - GI/Abdominal Exam GI & Abdominal Exam: Normal Bowel Sounds. absent: Organomegaly - Rectal Exam Rectal Exam: Deferred - Extremities Exam Extremities Exam: Normal Capillary Refill. 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
[2017-06-02] MEDS: Albuterol-Ipratrop 3 mg / 0.5 (3 ml) UD INH SCH ×4 (01:53→22:00)
[2017-06-02 07:18] LABS: BASO % 0.4 % (0.0-2.0); EOS # 0.3 K/uL (0.0-0.7); EOS % 4.2 % (0.0-4.0); HEMATOCRIT 31.5 % (35.0-51.0); LYMPH # 1.5 K/uL (1.0-4.3); LYMPH % 19.6 % (20.0-40.0); MEAN CELL VOLUME 92.3 fL (80.0-94.0); MEAN CORPUSCULAR HEMOGLOBIN 31.1 pg (27.0-31.0); MEAN CORPUSCULAR HGB CONC 33.7 g/dL (33.0-37.0); MEAN PLATELET VOLUME 8.4 fL (7.2-11.7); MONO # 1.1 K/uL (0.0-0.8); MONO % 14.8 % (0.0-10.0); RED CELL DISTRIBUTION WIDTH 14.1 % (11.5-14.5); WHITE BLOOD COUNT 7.7 K/uL (4.8-10.8)
[2017-06-02 07:34] LABS: IRON 28 ug/dL (49-181)
[2017-06-02 07:40] LABS: ALB/GLOB RATIO 1.3 (1.0-2.1); ALKALINE PHOSPHATASE 52 U/L (38-126); ALT/SGPT 24 U/L (21-72); AST/SGOT 17 U/L (17-59); BILIRUBIN,DIRECT 0.3 mg/dL (0.0-0.4); BILIRUBIN,TOTAL 0.4 mg/dL (0.2-1.3); BLOOD UREA NITROGEN 9 mg/dL (9-20); CALCIUM 8.7 mg/dl (8.6-10.4); CARBON DIOXIDE 28 mmol/L (22-30); CHLORIDE 100 mmol/L (98-107); CHOLESTEROL 115 mg/dL (0-199); GFR AFRICAN-AMERICAN > 60; GLUCOSE,RANDOM 209 mg/dL (75-110); POTASSIUM 4.3 mmol/L (3.6-5.2); SODIUM 133 mmol/L (132-148); TOTAL PROTEIN 5.9 g/dL (6.3-8.3)
[2017-06-02] MEDS: (Novolin R) Insulin Human Regular 100 units/ml vial SC SCH ×4 (08:12→21:24)
[2017-06-02 08:48] LABS: THYROID STIMULATING HORMONE 3.57 mIU/L (0.46-4.68)
[2017-06-02] MEDS: Magnesium Oxide 400 mg Tab UD PO SCH ×2 (09:33→17:07)
[2017-06-02] MEDS: Pantoprazole 40 mg EC Tab PO SCH (09:33)
[2017-06-02] MEDS: Enoxaparin 30 mg Syringe SC SCH ×2 (09:34→21:17)
--- NOTE | 2017-06-02 13:14 | CP.PCM.PN ---
Subjective - Date & Time of Evaluation Date of Evaluation: 06/02/17 Time of Evaluation: 12:00 - Subjective Subjective: On treatment for pneumonia, improved after hydration, stable coronary artery disease post CABG with normal left ventricular contractility, continue statin treatment in addition to beta anya and aspirin. Objective - Vital Signs/Intake and Output Vital Signs (last 24 hours): Temp Pulse Resp BP Pulse Ox 98.9 F 57 L 20 145/62 98 06/02/17 07:10 06/02/17 08:51 06/02/17 07:10 06/02/17 09:34 06/02/17 07:10 Intake and Output: 06/02/17 06/02/17 06:59 18:59 Intake Total 420 Output Total 850 Balance -430 - Medications Medications: Current Medications Albuterol/Ipratropium (Duoneb 3 Mg/0.5 Mg (3 Ml) Ud) 3 ml INH RQ6 [facility] Last Admin: 06/02/17 07:39 Dose: Not Given Amlodipine Besylate (Norvasc) 5 mg PO DAILY [facility] Last Admin: 06/02/17 09:34 Dose: 5 mg Aspirin (Aspirin Chewable) 81 mg PO DAILY [facility] Last Admin: 06/02/17 09:33 Dose: 81 mg Dextrose (Dextrose 50% Inj) 0 ml IVP .STAT PRN; Protocol PRN Reason: Hypoglycemia Protocol Dextrose (Glutose 15) 0 gm PO .ONCE PRN; Protocol PRN Reason: Hypoglycemia Protocol Enoxaparin Sodium (Lovenox) 30 mg SC Q12 [facility] Last Admin: 06/02/17 09:34 Dose: 30 mg Glucagon (Glucagen Diagnostic Kit) 0 mg IM .STAT PRN; Protocol PRN Reason: Hypoglycemia Protocol Dextrose (Dextrose 5% In Water 1000 Ml) 1,000 mls @ 0 mls/hr IV .Q0M PRN; Protocol; Per Protocol PRN Reason: Hypoglycemia Protocol Azithromycin 500 mg/ Dextrose 250 mls @ 250 mls/hr IVPB Q24H [facility] Last Admin: 06/02/17 12:00 Dose: 250 mls/hr Ceftriaxone Sodium 1 gm/ (Dextrose) 100 mls @ 100 mls/hr IVPB Q12H [facility] Last Admin: 06/02/17 09:35 Dose: 100 mls/hr Insulin Human Regular (Novolin R) 0 unit SC ACHS [facility] PRN Reason: Protocol Last Admin: 06/02/17 11:54 Dose: 3 unit Losartan Potassium (Cozaar) 25 mg PO DAILY [facility] Last Admin: 06/02/17 09:33 Dose: 25 mg Magnesium Oxide (Mag-Ox) 400 mg PO BID [facility] Last Admin: 06/02/17 09:33 Dose: 400 mg Metoprolol Tartrate (Lopressor) 25 mg PO BID [facility] Last Admin: 06/02/17 09:34 Dose: 25 mg Ondansetron HCl (Zofran Inj) 8 mg IVP Q6 PRN PRN Reason: Nausea/Vomiting Pantoprazole Sodium (Protonix Ec Tab) 40 mg PO DAILY [facility] Last Admin: 06/02/17 09:33 Dose: 40 mg Sennosides (Senokot Tab) 8.6 mg PO DAILY [facility] Last Admin: 06/02/17 09:33 Dose: 8.6 mg Spironolactone (Aldactone) 25 mg PO DAILY [facility] Last Admin: 06/02/17 09:34 Dose: 25 mg - Labs Labs: 06/02/17 07:03 06/02/17 07:03 - Constitutional Appears: Non-toxic - Head Exam Head Exam: ATRAUMATIC - Eye Exam Eye Exam: EOMI - ENT Exam ENT Exam: Mucous Membranes Moist - Neck Exam Neck Exam: absent: Lymphadenopathy, Thyromegaly - Respiratory Exam Respiratory Exam: Clear to Ausculation Bilateral. absent: Rales - Cardiovascular Exam Cardiovascular Exam: REGULAR RHYTHM, Murmur - GI/Abdominal Exam GI & Abdominal Exam: Normal Bowel Sounds. absent: Organomegaly - Rectal Exam Rectal Exam: Deferred - Extremities Exam Extremities Exam: Normal Capillary Refill. 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
--- NOTE | 2017-06-02 23:44 | CP.PCM.PN ---
Subjective - Date & Time of Evaluation Date of Evaluation: 06/02/17 Time of Evaluation: 23:44 - Subjective Subjective: AFEBRILE, lESS COUGH dENIES ANY EXPECTORATION. fEELING BETTER. Objective - Vital Signs/Intake and Output Vital Signs (last 24 hours): Temp Pulse Resp BP Pulse Ox 98.4 F 69 18 145/63 99 06/02/17 15:34 06/02/17 19:30 06/02/17 15:34 06/02/17 19:30 06/02/17 15:34 Intake and Output: 06/02/17 06/03/17 18:59 06:59 Intake Total 350 420 Balance 350 420 - Medications Medications: Current Medications Albuterol/Ipratropium (Duoneb 3 Mg/0.5 Mg (3 Ml) Ud) 3 ml INH RQ6 [facility] Last Admin: 06/02/17 22:00 Dose: Not Given Amlodipine Besylate (Norvasc) 5 mg PO DAILY [facility] Last Admin: 06/02/17 09:34 Dose: 5 mg Aspirin (Aspirin Chewable) 81 mg PO DAILY [facility] Last Admin: 06/02/17 09:33 Dose: 81 mg Dextrose (Dextrose 50% Inj) 0 ml IVP .STAT PRN; Protocol PRN Reason: Hypoglycemia Protocol Dextrose (Glutose 15) 0 gm PO .ONCE PRN; Protocol PRN Reason: Hypoglycemia Protocol Enoxaparin Sodium (Lovenox) 30 mg SC Q12 [facility] Last Admin: 06/02/17 21:17 Dose: 30 mg Glucagon (Glucagen Diagnostic Kit) 0 mg IM .STAT PRN; Protocol PRN Reason: Hypoglycemia Protocol Dextrose (Dextrose 5% In Water 1000 Ml) 1,000 mls @ 0 mls/hr IV .Q0M PRN; Protocol; Per Protocol PRN Reason: Hypoglycemia Protocol Azithromycin 500 mg/ Dextrose 250 mls @ 250 mls/hr IVPB Q24H [facility] Last Admin: 06/02/17 12:00 Dose: 250 mls/hr Ceftriaxone Sodium 1 gm/ (Dextrose) 100 mls @ 100 mls/hr IVPB Q12H [facility] Last Admin: 06/02/17 21:17 Dose: 100 mls/hr Insulin Human Regular (Novolin R) 0 unit SC ACHS [facility] PRN Reason: Protocol Last Admin: 06/02/17 21:24 Dose: Not Given Losartan Potassium (Cozaar) 25 mg PO DAILY [facility] Last Admin: 06/02/17 09:33 Dose: 25 mg Magnesium Oxide (Mag-Ox) 400 mg PO BID [facility] Last Admin: 06/02/17 17:07 Dose: 400 mg Metoprolol Tartrate (Lopressor) 25 mg PO BID [facility] Last Admin: 06/02/17 17:07 Dose: 25 mg Ondansetron HCl (Zofran Inj) 8 mg IVP Q6 PRN PRN Reason: Nausea/Vomiting Pantoprazole Sodium (Protonix Ec Tab) 40 mg PO DAILY [facility] Last Admin: 06/02/17 09:33 Dose: 40 mg Sennosides (Senokot Tab) 8.6 mg PO DAILY [facility] Last Admin: 06/02/17 09:33 Dose: 8.6 mg Spironolactone (Aldactone) 25 mg PO DAILY [facility] Last Admin: 06/02/17 09:34 Dose: 25 mg - Labs Labs: 06/02/17 07:03 06/02/17 07:03 - Constitutional Appears: No Acute Distress - Head Exam Head Exam: NORMAL INSPECTION - Eye Exam Eye Exam: EOMI, PERRL - ENT Exam ENT Exam: Normal Oropharynx - Neck Exam Neck Exam: Normal Inspection - Respiratory Exam Respiratory Exam: Rhonchi (FEW RHONCHI RT SIDE.) - Cardiovascular Exam Cardiovascular Exam: REGULAR RHYTHM, +S1, +S2 - GI/Abdominal Exam GI & Abdominal Exam: Soft, Normal Bowel Sounds - Extremities Exam Extremities Exam: Normal Capillary Refill. absent: Calf Tenderness, Pedal Edema - Neurological Exam Neurological Exam: Awake, CN II-XII Intact, Normal Gait, Oriented x3, Reflexes Normal - Psychiatric Exam Psychiatric exam: Normal Mood - Skin Skin Exam: Normal Color, Warm Assessment and Plan (1) Pneumonia Assessment & Plan: Continue IV Rocephin 1 g every 12 hourly..05/30/17 Continue IV Zithromax 500 mg once a day daily 05/30/17. follow-up chest x-ray Status: Acute (2) Altered mental state Assessment & Plan: PATIENT WAS HYPOGLYCEMIC ON ADMISSION. PATIENT MENTAL STATUS NOW FULLY AWAKE AND ALERT. Status: Acute (3) Heart block AV first degree Assessment & Plan: CARDIOLOGY ON BOARD. Status: Acute (4) Hypoglycemia Status: Acute
--- NOTE | 2017-06-03 01:57 | PN ---
DATE: SUBJECTIVE: The patient is an 81-year-old male. The patient is seen and examined at the bedside, looking comfortable. Cough is better. Shortness of breath is better. No chest pain. No nausea, vomiting, or diarrhea. No hematuria or hematochezia. Tolerating food very well. No fever. No chills. PHYSICAL EXAMINATION: VITAL SIGNS: Temperature 98.9, pulse 57, respiratory rate 20, blood pressure 145/62, and pulse oximetry 98. HEENT: Head is normocephalic and atraumatic. Eyes, PERRLA. Extraocular muscles are intact. Conjunctivae are clear. Nose is patent. NECK: Supple. No carotid bruit. No JVD or thyromegaly. CHEST: Bilaterally symmetrical. HEART: S1 and S2 positive. LUNGS: Clear to auscultation. ABDOMEN: Soft. Bowel sounds present. No organomegaly. EXTREMITIES: No edema. No cyanosis. NEUROLOGIC: The patient is awake and alert. Moving all four extremities. No focal deficits. MEDICATIONS: DuoNeb, Norvasc, aspirin, dextrose, Lovenox, glucagon, azithromycin, ceftriaxone, insulin, Cozaar, magnesium, metoprolol, Zofran, Protonix, Senokot, and Aldactone. LABORATORY DATA: White blood cells 7.7, hemoglobin 10.6, hematocrit 31.5, and platelets 221. Sodium 133, potassium 4.3, BUN 9, creatinine 1.2, and glucose 209. ASSESSMENT AND PLAN: Mr. Henrry Garcia is an 81-year-old male with coronary artery bypass graft, altered mental status - maybe due to hypoglycemia, pneumonia, dehydration - improved, getting IV antibiotics for pneumonia, coronary artery disease - stable post coronary artery bypass graft with normal left ventricular contractility. Continue statin treatment in addition to beta-blockers and aspirin as per Cardiology, Dr. Monteiro. The patient was seen by Dr. Lesvia Hull. Getting antibiotics. The 2D echo finding was noted. History of hypoglycemia, heart block - atrioventricular first degree. In the field, the patient was found to have hypoglycemia with glucose level of 32 that caused the altered mental status, improved after correction of sugar. We will continue present treatment. Repeat labs. We will follow up. Mary Le MD [facility] # [id number]
[2017-06-03] MEDS: Albuterol-Ipratrop 3 mg / 0.5 (3 ml) UD INH SCH ×3 (02:53→13:09)
[2017-06-03 08:12] VITALS: RESP 18; O2SAT 97
[2017-06-03] MEDS: (Novolin R) Insulin Human Regular 100 units/ml vial SC SCH ×3 (08:28→17:21)
[2017-06-03] MEDS: Magnesium Oxide 400 mg Tab UD PO SCH ×2 (11:57→17:20)
[2017-06-03] MEDS: Pantoprazole 40 mg EC Tab PO SCH (12:00)
[2017-06-03] MEDS: Enoxaparin 30 mg Syringe SC SCH (12:01)
--- NOTE | 2017-06-03 12:47 | CP.PCM.PN ---
Subjective - Date & Time of Evaluation Date of Evaluation: 06/03/17 Time of Evaluation: 11:40 - Subjective Subjective: patient seen today, wake, alert, ox3 , denies any chest pain, sob, dizziness, cough , fever chills, N/V/D a febrile No overnight events reported by RN Objective - Vital Signs/Intake and Output Vital Signs (last 24 hours): Temp Pulse Resp BP Pulse Ox 98.0 F 81 18 149/69 97 06/03/17 08:11 06/03/17 08:11 06/03/17 08:11 06/03/17 11:58 06/03/17 08:11 Intake and Output: 06/03/17 06/03/17 06:59 18:59 Intake Total 420 Balance 420 - Medications Medications: Current Medications Albuterol/Ipratropium (Duoneb 3 Mg/0.5 Mg (3 Ml) Ud) 3 ml INH RQ6 [facility] Last Admin: 06/03/17 07:21 Dose: Not Given Amlodipine Besylate (Norvasc) 5 mg PO DAILY [facility] Last Admin: 06/03/17 11:57 Dose: 5 mg Aspirin (Aspirin Chewable) 81 mg PO DAILY [facility] Last Admin: 06/03/17 12:02 Dose: 81 mg Enoxaparin Sodium (Lovenox) 30 mg SC Q12 [facility] Last Admin: 06/03/17 12:01 Dose: 30 mg Azithromycin 500 mg/ Dextrose 250 mls @ 250 mls/hr IVPB Q24H [facility] Last Admin: 06/02/17 12:00 Dose: 250 mls/hr Ceftriaxone Sodium 1 gm/ (Dextrose) 100 mls @ 100 mls/hr IVPB Q12H [facility] Last Admin: 06/03/17 11:59 Dose: 100 mls/hr Insulin Human Regular (Novolin R) 0 unit SC ACHS [facility] PRN Reason: Protocol Last Admin: 06/03/17 12:34 Dose: 2 unit Losartan Potassium (Cozaar) 25 mg PO DAILY [facility] Last Admin: 06/03/17 12:03 Dose: 25 mg Magnesium Oxide (Mag-Ox) 400 mg PO BID [facility] Last Admin: 06/03/17 11:57 Dose: 400 mg Metoprolol Tartrate (Lopressor) 25 mg PO BID [facility] Last Admin: 06/03/17 11:58 Dose: 25 mg Pantoprazole Sodium (Protonix Ec Tab) 40 mg PO DAILY [facility] Last Admin: 06/03/17 12:00 Dose: 40 mg Sennosides (Senokot Tab) 8.6 mg PO DAILY [facility] Last Admin: 06/03/17 11:58 Dose: 8.6 mg Spironolactone (Aldactone) 25 mg PO DAILY [facility] Last Admin: 06/03/17 11:58 Dose: 25 mg - Labs Labs: 06/02/17 07:03 06/02/17 07:03 Assessment and Plan - Assessment and Plan (Free Text) Assessment: A/P 81 yr old male admitted for AMS due to hypoglycemia and pneumonia seen by Dr. Frances , cleared for discharge home today and f/u with his office on at 3 pm D/W Dr. Hull cleared for discharge home today and continue augmentin x 5 more days Discharge plan discussed with patient who understands and agrees with plan
[2017-06-03 17:19] VITALS: BP 154/72; PULSE 77; TEMP 98.5
--- NOTE | 2017-06-03 19:41 | CP.PCM.PN ---
Subjective - Date & Time of Evaluation Date of Evaluation: 06/03/17 Time of Evaluation: 19:41 - Subjective Subjective: AFEBRILE, OFFERS NO COMPLAINTS. NO ACUTE EVENTS OVERNIGHT Objective - Vital Signs/Intake and Output Vital Signs (last 24 hours): Temp Pulse Resp BP Pulse Ox 98.5 F 77 18 154/72 H 97 06/03/17 17:19 06/03/17 17:19 06/03/17 17:19 06/03/17 17:20 06/03/17 17:19 - Labs Labs: 06/02/17 07:03 06/02/17 07:03 - Constitutional Appears: No Acute Distress - Head Exam Head Exam: NORMAL INSPECTION - Eye Exam Eye Exam: EOMI, PERRL - ENT Exam ENT Exam: Normal Exam, Normal Oropharynx - Neck Exam Neck Exam: Normal Inspection - Respiratory Exam Respiratory Exam: NORMAL BREATHING PATTERN (LUNGS SOUND CLEAR. lESS RHONCHI RIGHT SIDE.) - Cardiovascular Exam Cardiovascular Exam: REGULAR RHYTHM, +S1, +S2 - GI/Abdominal Exam GI & Abdominal Exam: Soft, Normal Bowel Sounds. absent: Organomegaly - Extremities Exam Extremities Exam: Normal Capillary Refill. absent: Calf Tenderness, Pedal Edema - Neurological Exam Neurological Exam: Alert, Awake, CN II-XII Intact, Normal Gait, Oriented x3, Reflexes Normal - Psychiatric Exam Psychiatric exam: Normal Mood - Skin Skin Exam: Normal Color, Warm Assessment and Plan (1) Pneumonia Assessment & Plan: case discussed with [employer] AGGARWAL. pATIENT ANXIOUS TO GO HOME. CAN SWITCH TO BY MOUTH aUGMENTIN 875 MG TWICE A DAY FOR 5 DAYS. BACID 1 TABLET BY MOUTH AT BEDTIME FOR 5 DAYS. CAN FOLLOW-UP CHEST X-RAY OUTPATIENT AFTER COMPLETION OF THERAPY. pATIENT TO FOLLOW-UP WITH HIS PRIMARY CARE ON DISCHARGE. Status: Acute (2) Altered mental state Assessment & Plan: MENTAL STATUS STABLE. Status: Acute (3) Heart block AV first degree Status: Acute (4) Hypoglycemia Status: Acute
--- NOTE | 2017-06-09 22:34 | CARD ---
APPROVED REPORT EKG Measurement Heart [id number] <Conclusion> Sinus rhythm with 1st degree AV block Cannot rule out Inferior infarct, age undetermined Abnormal ECG
--- NOTE | 2017-06-10 06:31 | DS ---
CHIEF COMPLAINT: Altered mental status. HISTORY OF PRESENT ILLNESS: Mr. Jose Sales is an 81-year-old male, who came to [facility] due to altered mental status. The patient woke up his granddaughter and was asking strange questions and had slurred speech. Altered mental status was noted. The patient had hypoglycemia - glucose was 44 as per EMS. Treated on the field. Recheck in the ER was 290. We admitted the patient. Came to know that the patient has pneumonia. Antibiotics were given, improved. Did CAT scan of the head. Seen by Dr. Lesvia Hull, Infectious Disease; Cardiology, Dr. Cristi Monteiro. Improved, discharged home after antibiotics. Prescription of medications was given. Followup appointment given. Especially to repeat chest x-ray to make sure that pneumonia residues are gone. PAST MEDICAL HISTORY: Hypercholesterolemia. FAMILY HISTORY: Father and mother, noncontributory. HABITS: No smoking. No drug. No ethanol. ALLERGIES: THE PATIENT IS NOT ALLERGIC TO ANY MEDICATIONS. REVIEW OF SYSTEMS: The patient is seen and examined at the bedside, looking comfortable. No cough. No shortness of breath. No nausea, vomiting, or diarrhea. No hematuria or hematochezia. No fever. No chills. No swelling of the leg. No headache. No dizziness. PHYSICAL EXAMINATION: VITAL SIGNS: Temperature is 98.5, pulse 77, blood pressure 154/72, and respiratory rate 18. HEENT: Head: Normocephalic, atraumatic. Eyes: PERRLA. Extraocular movements are intact. Conjunctivae clear. Nose patent. NECK: Supple. No carotid bruits or thyromegaly. CHEST: Bilaterally symmetrical. HEART: S1 and S2 positive. LUNGS: Clear to auscultation. ABDOMEN: Soft. Bowel sounds are present. No organomegaly. EXTREMITIES: No edema. No cyanosis. NEUROLOGIC: The patient is awake and alert. Moving all four extremities. No focal deficits. LABORATORY DATA: White blood cells 7.7, hemoglobin 10.3, hematocrit 31.5, and platelets 221. Glucose 293. Sodium 133, potassium 4.3, BUN 9, creatinine 1.3, glucose 207, saturation of 11%, iron is 28, and hemoglobin A1c is 9.2. ASSESSMENT AND PLAN: Mr. Jose Sales is an 81-year-old male with uncontrolled diabetes mellitus - hemoglobin A1c of 9.2, came with hypoglycemia, anemia, and glucosuria. Urine Legionella negative. Mycoplasma pneumoniae IgM negative. History of coronary artery disease - bypass graft. Came with altered mental status due to hypoglycemia - maybe due to pneumonia, dehydration. Got IV antibiotics for pneumonia. Coronary artery disease status is stable. The patient improved on 06/03/2017. Discharged home with statin, beta-blockers, and aspirin. Seen by Cardiology, Dr. Monteiro. Antibiotics given. Seen by Dr. Lesvia Hull. Cleared by all. A 2-D echo finding was noted. History of hypoglycemia, used to be compliant. Length of time discussion was done with the family. Mary Le MD
== END 2017-06-03 18:20 | disposition home or self-care (01) | DRG 871 ==
LOC: C.ER 10:25 → EEVIPCON 12:56 → C.9E 12:56 → C.6T 14:06
PROVIDERS: ADMIT Internal Medicine; ATTEND Internal Medicine
DX: A41.9 Sepsis, unspecified organism (principal); J18.9 Pneumonia, unspecified organism; E11.649 Type 2 diabetes mellitus with hypoglycemia without coma; E87.8 Other disorders of electrolyte and fluid balance, not elsewhere classified; D64.9 Anemia, unspecified; E86.0 Dehydration; J98.11 Atelectasis; E78.2 Mixed hyperlipidemia; I10 Essential (primary) hypertension; I25.10 Atherosclerotic heart disease of native coronary artery without angina pectoris; I44.0 Atrioventricular block, first degree; Z95.1 Presence of aortocoronary bypass graft